=== PATIENT | female | born 1935 | race Caucasian/White ===

== ENCOUNTER 2017-02-10 10:25 | Inpatient (IN) | payer OTHER ==
[~2017-02-10] VITALS: Ht 177.8 cm; Wt 81.7 kg
[2017-02-10 12:37] LABS: BASOPHIL % 0.3 % (0-2); PLATELET COUNT 197 x10^3mcL (130-400); RED CELL DISTRIBUTION WIDTH 14.4 % (11.5-14.5)
[2017-02-10 12:48] LABS: CALCIUM 8.8 mg/dL (8.5-10.1); CARBON DIOXIDE 28.6 mmol/L (21-32); CHLORIDE SERUM 103 mmol/L (98-107); CREATININE SERUM 0.6 mg/dL (0.6-1.0); GLUCOSE SERUM 161 mg/dL (74-106); POTASSIUM SERUM 4.3 mmol/L (3.5-5.1); SODIUM SERUM 141 mmol/L (136-145)
[2017-02-10 12:55] LABS: ALBUMIN 3.4 g/dL (3.4-5.0); ALKALINE PHOSPHATASE 90 U/L (46-116); ALT/SGPT 23 U/L (14-59); AST/SGOT 16 U/L (15-37); BILIRUBIN TOTAL 0.47 mg/dL (0.20-1.00); TOTAL PROTEIN, SERUM 7.1 g/dL (6.4-8.2)
[2017-02-10] MEDS ORDERED: IBUPROFEN400 MG PO (14:00)
[2017-02-10] MEDS ORDERED: ATORVASTATIN CA10 M1 PO (14:01)
[2017-02-10] MEDS ORDERED: GLUCOPHAGE XR500 MG PO (14:01)
[2017-02-10] MEDS ORDERED: ZESTRIL40 MG PO (14:02)
[2017-02-10] MEDS ORDERED: GLIPIZIDE5 M2 PO (14:03)
[2017-02-10 14:26] VITALS: BP 163/72
[2017-02-10 15:34] LABS: T3 TOTAL 0.86 ng/mL
[2017-02-10 16:06] LABS: MAGNESIUM 1.7 mg/dL (1.8-2.4); PHOSPHOROUS 3.4 mg/dL (2.5-4.9)
[2017-02-10 16:16] LABS: FREE T4 1.16 ng/dL (0.76-1.46); FREE THYROXINE INDEX 2.9 ug/dL (1.4-4.5); T4(THYROXINE) 8.5 ug/dL (4.7-13.3)
[2017-02-10 17:55] VITALS: BP 151/70
[2017-02-10 20:43] VITALS: BP 143/66
[2017-02-11 05:32] VITALS: BP 124/64
[2017-02-11 06:18] LABS: BASOPHIL % 0.2 % (0-2); PLATELET COUNT 187 x10^3mcL (130-400); RED CELL DISTRIBUTION WIDTH 14.4 % (11.5-14.5)
[2017-02-11 06:29] LABS: CALCIUM 8.4 mg/dL (8.5-10.1); CARBON DIOXIDE 24.9 mmol/L (21-32); CHLORIDE SERUM 105 mmol/L (98-107); CHOLESTEROL 155 mg/dL (<200); CREATININE SERUM 0.7 mg/dL (0.6-1.0); GLUCOSE SERUM 196 mg/dL (74-106); POTASSIUM SERUM 4.3 mmol/L (3.5-5.1); SODIUM SERUM 140 mmol/L (136-145); TRIGLYCERIDES 31 mg/dL (<150)
[2017-02-11 06:43] LABS: HDL CHOLESTEROL 79 mg/dL (40-60)
[2017-02-11 10:10] VITALS: BP 156/69
[2017-02-11] MEDS ORDERED: ROBAXIN500 MG PO (12:11)
[2017-02-11 12:28] VITALS: BP 156/69
[2017-02-11 13:18] VITALS: BP 138/63
== END 2017-02-11 15:57 | disposition home or self-care (01) | DRG 552 ==
LOC: ED 10:25 → DU 13:43
PROVIDERS: Emergency Medicine; ADMIT Family Medicine
DX: M62.830 Muscle spasm of back (principal); D68.69 Other thrombophilia; M50.322 Other cervical disc degeneration at C5-C6 level; E11.51 Type 2 diabetes mellitus with diabetic peripheral angiopathy without gangrene; E11.65 Type 2 diabetes mellitus with hyperglycemia; I10 Essential (primary) hypertension; E78.5 Hyperlipidemia, unspecified; Z96.652 Presence of left artificial knee joint; Z68.25 Body mass index [BMI] 25.0-25.9, adult; Z79.84 Long term (current) use of oral hypoglycemic drugs; Z79.1 Long term (current) use of non-steroidal anti-inflammatories (NSAID); Z88.0 Allergy status to penicillin
CPT/HCPCS: 82962; 83880; 84439; J1100; J1885; J2270; J2405; J3010; J7030; Q0162